=== PATIENT | female | born 1940 | race Caucasian/White ===

== ENCOUNTER 2022-01-12 07:03 | Day surgery (SDC) | payer MEDICARE, SELFPAY ==
[2022-01-12] MEDS: Tropicam./Phenyleph. (1/2.5%) 5 ML BTL OS ×3 (08:10→08:32)
[2022-01-12 08:26] VITALS: BP 153/103; PULSE 60; RESP 18; TEMP 36.4; O2SAT 98
[2022-01-12 08:33] VITALS: BP 186/85; PULSE 58; RESP 18; O2SAT 98
--- NOTE | 2022-01-12 08:36 | W.ANESPRE ---
General Info Date of Service Date Performed: 01/12/22 Height: 5 ft 1 in Weight: 107.9 kg Body Mass Index (BMI): 44.9 Surgical Procedure: Operation Date: 01/12/22 09:10 Proposed Procedure Side Surgeon p Cataract Extraction with IOL Implant Left William Mckenna MD Meds Allergies and Home Medications Allergies Allergy/AdvReac Type Severity Reaction Status Date / Time codeine Allergy Intermediate Psychosis Unverified 01/12/22 08:16 Home Medication Medication Instructions Recorded amiodarone 200 mg tablet 200 mg PO BID 01/07/22 apixaban 5 mg tablet 5 mg PO BID 01/07/22 clobetasol 0.05 % topical cream 1 applic TOPICAL DIRECTED 01/07/22 lovastatin 40 mg tablet 40 mg PO HS 01/07/22 metoprolol tartrate 50 mg tablet 50 mg PO TID 01/07/22 multivitamin 1 tab PO DAILY 01/07/22 albuterol sulfate 90 mcg/actuation 2 inh INHALATION DIRECTED 01/08/22 aerosol inhaler fluticasone 250 mcg-salmeterol 50 1 ea INHALATION BID 01/08/22 mcg/dose blistr powdr for inhalation (Advair Diskus) furosemide 20 mg tablet 20 mg PO BID 01/08/22 loratadine 10 mg tablet 10 mg PO DAILY 01/08/22 acetaminophen 650 mg tablet 650 mg PO Q6H PRN 01/12/22 Current Visit Medications: Current Medications Generic Name Dose Route Start Last Admin Trade Name Freq PRN Reason Stop Dose Admin Acetaminophen 1,000 mg 01/12/22 06:00 Acetaminophen 500 Mg Tab PO Q4H PRN PRN Miscellaneous Medication 0 ml 01/12/22 06:00 Prednisolone 1%, Moxifloxacin 0.5%, Nepafenac 0.1% 5ml Btl OS DIRECTED MITRA Miscellaneous Medication 0 ml 01/12/22 06:00 01/12/22 08:32 Tropicam./Phenyleph. 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 NSTEMI (non-ST elevated myocardial infarction) 08/2020 Osteoarthritis Pre-diabetes Tongue abnormality Surgical History Surgical History (Updated 01/12/22 @ 08:16 by Eliza Arias) H/O thumb surgery Hx of cardiac catheterization 09/08/20,09/12/20,11/01/20 Hx of tonsillectomy Hx of total knee replacement S/P WEST-BSO (total abdominal hysterectomy and bilateral salpingo-oophorectomy) S/P TAVR (transcatheter aortic valve replacement) Tobacco Smoking/Tobacco Use Status: Never Alcohol Alcohol Intake: current Alcohol intake frequency: a few times a month Alcohol type: wine Substance Use Substance use: Never Substance use type: does not use Vital Signs and Lab Results Vital Signs Most Recent Vital Signs in EMR: Most Recent Vital Signs Temp Pulse Resp BP Pulse Ox 36.4 C L 58 L 18 186/85 H 98 01/12/22 08:26 01/12/22 08:33 01/12/22 08:33 01/12/22 08:33 01/12/22 08:33 Lab Results Blood Type / Crossmatch: No Data to Display Complete Blood Count: No Data to Display Complete Metabolic Panel: No Data to Display Liver Function Panel: No Data to Display Coagulation Panel: No Data to Display Cardiac Panel: No Data to Display Arterial Blood Gas: No Data to Display Venous Blood Gas: No Data to Display Pancreas Panel: No Data to Display Thyroid Panel: No Data to Display Infectious Disease: No Data to Display Blood Cultures: No Data to Display Toxicology Panel: No Data to Display Imaging and Studies Imaging and Studies Study information below may be from another EMR and interpreted by another provider. Please see original notes in EMR for more complete details. Echocardiogram Summary: 03/17/21: [facility] [place], EF 71%, Prosthetic Valve, Mild perivalvular leak, Mild MR, PA systolic 32, Gradient acorss valve is 66 Peak/33 Mean. Anesthesia Assessment and Plan Anesthesia History Personal History: No History of Anesthesia Complications Family History: No Family History of Anesthesia Complications Exercise Tolerance Exercise Tolerance: Metabolic Equivalents<4 Pertinent Negatives Pertinent Negatives: No Symptoms of GERD Cardiac & Pulmonary Exam Cardiac Exam: Normal S1/S2 Heart Sounds Pulmonary Exam: Clear Bilateral Breath Sounds Implantable Cardiac Device Does patient have a Pacemaker or an ICD?: No Airway Exam Known Difficult Airway: No Mallampati Class: 3 Mouth Opening: Normal (> 3cm) Thyromental Distance: Greater than 3 cm Neck Range of Motion: Full ROM Neck Circumference: Normal Teeth Condition: Normal Dentition ASA Classification ASA Score: ASA 3 Emergency Case?: No NPO Status NPO Status: NPO Clears >2 hours, Solids >8 hours Anesthesia Plan Resuscitation Status: Full Code Anesthesia Technique: MAC Anesthesia Airway Planned: Natural Airway Monitors Used: Standard Monitors
[2022-01-12 08:49] VITALS: BMI 44.9
[2022-01-12] MEDS: Tetracaine 0.5% 4 ML BTL OS (08:50)
[2022-01-12] MEDS: Lidocaine 2% Jelly 6 ML SYR (08:51)
[2022-01-12] MEDS: Povidone-Iodine Ophth 30 ML BTL (08:52)
[2022-01-12] MEDS: Balanced Salt Soln.-PLUS 500 ML BAG (08:57)
[2022-01-12] MEDS: Duovisc Viscoelastic System EACH 1 EACH (08:58)
[2022-01-12] MEDS: Trypan Blue 0.06% 0.5 ML SYR (09:02)
[2022-01-12 09:19] VITALS: BP 185/51; PULSE 52; RESP 16; TEMP 36.1; O2SAT 99
--- NOTE | 2022-01-12 09:20 | W.PM.DSUDISC ---
Discharge Plan Disposition Patient Disposition: HOME Condition: Good Discharge Details Attending Provider: William Mckenna Primary Care Provider: ALEXANDRO NOLAN Home Meds and New Rx's Prescriptions: No Action multivitamin Tablet 1 tab PO DAILY 0RF amiodarone 200 mg Tablet 200 mg PO BID 0RF lovastatin 40 mg Tablet 40 mg PO HS 0RF clobetasol 0.05 % Cream 1 applic TOPICAL DIRECTED 0RF metoprolol tartrate 50 mg Tablet 50 mg PO TID 0RF apixaban 5 mg Tablet 5 mg PO BID 0RF furosemide 20 mg Tablet 20 mg PO BID 0RF loratadine 10 mg Tablet 10 mg PO DAILY 0RF fluticasone propion-salmeterol [Advair Diskus] 250-50 mcg/dose Blister With Device 1 ea INHALATION BID 0RF albuterol sulfate 90 mcg/actuation Hfa Aerosol Inhaler 2 inh INHALATION DIRECTED 0RF acetaminophen 650 mg Tablet 650 mg PO Q6H PRN0RF Discharge Instructions Stand Alone Forms: Post-op Topical Cataract, Elsy Doe (DSU) Discharge Orders Discharge Orders: Discharge Order (Routine); Ordered 01/12/22 Ordered By: William Mckenna DS: Diagnosis Discharge Diagnosis (1) Cortical cataract of left eye: Status: Resolved (2) Nuclear sclerotic cataract of left eye: Status: Resolved (3) Posterior subcapsular age-related cataract of left eye: Status: Resolved
--- NOTE | 2022-01-12 09:23 | W.PM.OP ---
Date of service: 01/12/22 Time of Service: 09:23 Operative Note Operative Note DATE OF PROCEDURE: 01/12/22 PRE-OP DIAGNOSIS: Nuclear/cortical/posterior subcapsular cataract, left eye POST-OP DIAGNOSIS: same PROCEDURE: Cataract extraction using phacoemulsification with intraocular lens implant, left eye, using capsular staining with Vision Blue SURGEON: William Mckenna ANESTHESIA TYPE: Local By Surgeon and MAC Refer to Anesthesia Record COMPLICATIONS: None Patient was transported to: same day Patient's condition: stable Implants: Josias and Josias / [employer] Tecnis [id number] Indications: Progressive decreased vision due to cataract, left eye, with poor red reflex Procedure Description: CATARACT SURGERY OPERATIVE REPORT PREOPERATIVE DIAGNOSIS: 1. Nuclear/cortical/posterior subcapsular cataract, left eye 2. Poor red reflex secondary to #1 POSTOPERATIVE DIAGNOSIS: Same OPERATION: 1. Cataract extraction using phacoemulsification with posterior chamber intraocular lens implant, left eye. 2. Capsular staining with Vision Blue IOL: IOL Fuels Sales Representative/Model: Josias & Josias / PETROS Tecnis [id number] IOL Power: + 24.5 diopters IOL Serial Number: [id number] Optic Diameter: 6.0 mm Haptic/Overall Diameter: 13.0 mm PHACO INFO: Chet Centurion Vision System with OZil and Active Fluidics Cumulative Dispersed Energy (CDE): 13.88 seconds SURGEON: William Mckenna MD, BABATUNDE ANESTHESIA: Monitored A [facility] (MAC), with local sub-tenon's anesthetic infiltration COMPLICATIONS: None SPECIMENS: None INDICATIONS FOR PROCEDURE: The patient is an 81-year-old lady with history of diminished visual acuity in her left eye who was noted to have a significant nuclear/cortical/posterior subcapsular cataract with poor visual acuity. The option of cataract surgery was offered to the patient and she felt she was symptomatic enough that she wished to proceed. PROCEDURE: The correct surgical eye was identified and marked as the left eye and the pupil was dilated in the preoperative area using mydriatics and cycloplegics. The dilated pupil size was 6.0 mm. She elected to proceed without oral sedation. The patient was brought to the operating room where cardiopulmonary monitoring was instituted and surgical time-out was performed, confirming the correct operative eye and IOL power. Topical anesthesia was administered and ophthalmic povidone-iodine 5% was instilled into the conjunctival fornices. Lidocaine gel was applied to the cornea and the manan-ocular area was prepped with Betadine 10% solution and draped in the usual sterile fashion for intraocular surgery, including an aperture drape. A Tegaderm transparent film dressing was cut in half and used to cover the lashes and lid margins. Care was taken to sequester the lashes and lid margins under the Tegaderm dressing. A lid speculum was placed between the lids of the operative eye and the Chet LuxOR Revalia operating microscope was maneuvered into position. Lewis scissors were then used to make a conjunctival buttonhole approximately 6mm posterior to the limbus in the inferonasal quadrant. Blunt dissection was carried out to expose bare sclera, and a blunt-tipped sub-tenon?s anesthesia cannula was introduced and passed posteriorly along the globe where non-preserved plain lidocaine was injected into posterior sub-Tenon?s space. A sideport knife was used to make a paracentesis port superiorly/superiortemporally. Intraocular phenylephrine/lidocaine was injected int the anterior chamber.. Air was then injected into the anterior chamber, followed by Vision Blue, which was painted over the anterior capsule and then irrigated out using BSS. The anterior chamber was filled with viscoelastic. A 2.4mm keratome knife was used to create a half-thickness groove at the limbus and then to construct a three-plane near-clear corneal tunnel extending 2.0mm into clear cornea at the 3:00 position. A flap was raised on the anterior capsule and capsulorhexis forceps were used to complete a continuous curvilinear capsulorhexis of 5.0 mm. Balanced salt solution was then used to perform cortical cleaving hydrodissection and nuclear hydrodelineation until the lens could be freely rotated within the capsular bag. The lens nucleus was then disassembled and removed within the capsular bag and iris plane using phacoemulsification. Residual cortical material was removed using the 45-degree angled silicone I/A tip with 0.3mm port. The posterior capsule was carefully polished to remove as much residual lens epithelial cells as safely possible. The capsular bag was then inflated and the anterior chamber deepened with viscoelastic. The lens implant described above was inserted into the capsular bag using the PETROS Red Devil Injector. A Kuglen hook was used to dial the IOL into position. Residual viscoelastic was then removed first from posterior to the IOL, then from the anterior chamber using the I/A handpiece. The lens implant was noted to center nicely within the capsular bag. The incisions were stromally hydrated, and the anterior chamber was reformed using BSS. Then 0.5cc of moxifloxacin 1.0mg/ml were injected into the capsular bag and anterior chamber. The incisions were checked with a Weck spear and found to be secure. Several drops of ophthalmic povidone-iodine 5% were then applied to the eye followed by two drops of Imprimis combination prednisolone/moxifloxacin/nepafenac solution. The drapes were removed and a clear plastic protective eye shield was placed over the eye. The patient was then returned to Same Day Surgery in stable condition.
--- NOTE | 2022-01-12 09:49 | W.ANESPOSTOP ---
Postoperative Evaluation Date, Time and Location Date Performed: 01/12/22 Time Performed: 09:49 Patient Location: Day Surgery Unit Vital Signs Most Recent Imported Vital Signs: Most Recent Vital Signs Temp Pulse Resp BP Pulse Ox 36.1 C L 52 L 16 185/51 H 99 01/12/22 09:19 01/12/22 09:19 01/12/22 09:19 01/12/22 09:19 01/12/22 09:19 Pain Score Most Recent Pain Score: Most Recent Pain Score Pain Level 0 01/12/22 09:19 Assessment Mental Status: Awake (Alert & Oriented to Patient Baseline) Airway and Respiratory Function: Patent airway with normal (patient baseline) respiratory exam Cardiovascular Function: Hemodynamically Stable Hydration Status: Adequately Hydrated Nausea & Vomiting: No Nausea or Vomiting Pain: Pt. Denies Any Pain Peripheral Nerve Block: Patient did not receive a nerve block
== END 2022-01-12 09:44 | disposition home or self-care (01) ==
PROVIDERS: PCP Optometrist; Visit Provider Ophthalmology
PROC: (CPT 66984; principal; 2022-01-12 09:00)
DX: H25.042 Posterior subcapsular polar age-related cataract, left eye (principal); I35.0 Nonrheumatic aortic (valve) stenosis; J44.9 Chronic obstructive pulmonary disease, unspecified; R73.03 Prediabetes; I10 Essential (primary) hypertension
CPT/HCPCS: 66984; V2632

== ENCOUNTER 2022-01-26 11:47 | Day surgery (SDC) | payer MEDICARE, OTHER, SELFPAY ==
--- NOTE | 2022-01-08 12:19 | PDOC.ANES ---
Date of service: 01/08/22 Time of Service: 12:20 Anesthesia Note Report Anesthesia Note: Maye is scheduled for a cataract removal in the next few weeks, but given her pmhx she is likely not a candidate for receiving sedation. On conversing with our preop RN she expressed concern about this. I called Maye at home and we discussed the procedure and anesthesia's role during the procedure. We went over the flow, positioning, and what to expect with her upcoming procedure. All of her questions where answered and she seems to be much more comfortable about her procedure. .
--- NOTE | 2022-01-26 10:36 | HPE_ITS ---
Assessment and Plan Assessment and plan (1) Posterior subcapsular age-related cataract, right eye: Status: Acute Assessment and plan: Assessment: Visually significant cataract of the right eye. Plan: Cataract extraction with lens implantation of the right eye (2) Cortical cataract of right eye: Status: Acute Assessment and plan: Assessment: Visually significant cataract of the right eye. Plan: Cataract extraction with lens implantation of the right eye (3) Nuclear sclerotic cataract of right eye: Status: Acute Assessment and plan: Assessment: Visually significant cataract of the right eye. Plan: Cataract extraction with lens implantation of the right eye History of Present Illness History of Present Illness Chief Complaint: Progressive decreased vision, right eye Narrative: The patient is an 80-year-old lady with history of progressive decreased vision in both eyes secondary to the development of bilateral nuclear/cortical/posterior subcapsular cataract. She has already undergone cataract surgery in her left eye on 01/12/2022 and is doing well postoperatively. She now presents for cataract surgery in her right eye. 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 NSTEMI (non-ST elevated myocardial infarction) 08/2020 Osteoarthritis Pre-diabetes Tongue abnormality Surgical History H/O thumb surgery Hx of cardiac catheterization 09/08/20,09/12/20,11/01/20 Hx of tonsillectomy Hx of total knee replacement S/P WEST-BSO (total abdominal hysterectomy and bilateral salpingo-oophorectomy) S/P TAVR (transcatheter aortic valve replacement) Social History Smoking/Tobacco Use Status: Never Smoking risk assessment performed?: Yes Alcohol Intake: current Alcohol Intake frequency: a few times a month Alcohol type: wine Drug use: Never Substance use type: does not use Do you feel safe at home: Yes Do you feel safe in your relationship?: Yes Additional Social history: unable to assess privately Meds Allergies and Home Medications Allergies Allergy/AdvReac Type Severity Reaction Status Date / Time codeine Allergy Intermediate Psychosis Verified 01/26/22 12:26 Home Medications Medication Instructions Recorded Confirmed Type amiodarone 200 mg tablet 200 mg PO BID 01/07/22 01/26/22 History apixaban 5 mg tablet 5 mg PO BID 01/07/22 01/26/22 History lovastatin 40 mg tablet 40 mg PO HS 01/07/22 01/26/22 History metoprolol tartrate 50 mg tablet 50 mg PO TID 01/07/22 01/26/22 History multivitamin 1 tab PO DAILY 01/07/22 01/26/22 History albuterol sulfate 90 mcg/actuation 2 inh INHALATION DIRECTED 01/08/22 01/26/22 History aerosol inhaler fluticasone 250 mcg-salmeterol 50 1 ea INHALATION BID 01/08/22 01/26/22 History mcg/dose blistr powdr for inhalation (Advair Diskus) furosemide 20 mg tablet 20 mg PO BID 01/08/22 01/26/22 History loratadine 10 mg tablet 10 mg PO DAILY 01/08/22 01/26/22 History acetaminophen 650 mg tablet 650 mg PO Q6H PRN 01/12/22 01/26/22 History Exam Eyes Other: Uncorrected visual acuity measures 20/100 right eye, 20/25 left eye. Intraocular pressure is 16 in each eye. Extraocular motility is normal. Slit- lamp examination reveals a severe cortical cataract with a mild nuclear and posterior subcapsular cataract in the right eye. The left eye shows a well- positioned PCIOL with clear posterior capsule. Funduscopic examination reveals disc cupping of 0.3 OU with normal vessels, macula, peripheral retina and vitreous. There are extra macular drusen temporal to the macula and nasal to the optic nerve. Resp Auscultation: clear to auscultation bilaterally Cardio Rate: regular rate Rhythm: regular rhythm
[2022-01-26 12:10] VITALS: BP 208/76; PULSE 61; RESP 20; TEMP 36.5; O2SAT 97
[2022-01-26] MEDS: Tropicam./Phenyleph. (1/2.5%) 5 ML BTL OD ×3 (12:34→12:47)
--- NOTE | 2022-01-26 12:49 | W.ANESPRE ---
General Info Date of Service Date Performed: 01/26/22 Height: 5 ft 1 in Weight: 107.6 kg Body Mass Index (BMI): 44.8 Surgical Procedure: Operation Date: 01/26/22 13:40 Proposed Procedure Side Surgeon p Cataract Extraction with IOL Implant Right William Mckenna MD Meds Allergies and Home Medications Allergies Allergy/AdvReac Type Severity Reaction Status Date / Time codeine Allergy Intermediate Psychosis Verified 01/26/22 12:26 Home Medication Medication Instructions Recorded amiodarone 200 mg tablet 200 mg PO BID 01/07/22 apixaban 5 mg tablet 5 mg PO BID 01/07/22 lovastatin 40 mg tablet 40 mg PO HS 01/07/22 metoprolol tartrate 50 mg tablet 50 mg PO TID 01/07/22 multivitamin 1 tab PO DAILY 01/07/22 albuterol sulfate 90 mcg/actuation 2 inh INHALATION DIRECTED 01/08/22 aerosol inhaler fluticasone 250 mcg-salmeterol 50 1 ea INHALATION BID 01/08/22 mcg/dose blistr powdr for inhalation (Advair Diskus) furosemide 20 mg tablet 20 mg PO BID 01/08/22 loratadine 10 mg tablet 10 mg PO DAILY 01/08/22 acetaminophen 650 mg tablet 650 mg PO Q6H PRN 01/12/22 Current Visit Medications: Current Medications Generic Name Dose Route Start Last Admin Trade Name Freq PRN Reason Stop Dose Admin Acetaminophen 1,000 mg 01/26/22 06:00 Acetaminophen 500 Mg Tab PO Q4H PRN PRN Miscellaneous Medication 0 ml 01/26/22 06:00 Prednisolone 1%, Moxifloxacin 0.5%, Nepafenac 0.1% 5ml Btl OD DIRECTED COUNTS INCLUDE 234 BEDS AT THE [facility] Miscellaneous Medication 0 ml 01/26/22 06:00 01/26/22 12:47 Tropicam./Phenyleph. (1/2.5%) 5 Ml Btl OD 1 drp DIRECTED MITRA Administration Tetracaine HCl 0 ml 01/26/22 06:00 Tetracaine 0.5% 4 Ml Btl OD DIRECTED COUNTS INCLUDE 234 BEDS AT THE [facility] PFSH Active Problems Active Problems: Problem Status Onset Code Posterior subcapsular age-related cataract, right eye H25.041 Cortical cataract of right eye H26.9 Nuclear sclerotic cataract of right eye H25.11 Cortical cataract of left eye H26.9 Nuclear sclerotic cataract of left eye H25.12 Posterior subcapsular age-related cataract of left eye H25.042 Medical History Medical History Ybnrt-3-kqzslvqzesi deficiency carrier Aortic stenosis Asthma COPD (chronic obstructive pulmonary disease) DJD (degenerative joint disease) Eczema HLD (hyperlipidemia) HTN (hypertension) 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 Anestheisa made aware Surgical History Surgical History H/O thumb surgery Hx of cardiac catheterization 09/08/20,09/12/20,11/01/20 Hx of tonsillectomy Hx of total knee replacement S/P WEST-BSO (total abdominal hysterectomy and bilateral salpingo-oophorectomy) S/P TAVR (transcatheter aortic valve replacement) Tobacco Smoking/Tobacco Use Status: Never Alcohol Alcohol Intake: current Alcohol intake frequency: a few times a month Alcohol type: wine Substance Use Substance use: Never Substance use type: does not use Vital Signs and Lab Results Vital Signs Most Recent Vital Signs in EMR: Most Recent Vital Signs Temp Pulse Resp BP Pulse Ox 36.5 C 61 20 208/76 H 97 01/26/22 12:10 01/26/22 12:10 01/26/22 12:10 01/26/22 12:10 01/26/22 12:10 Lab Results Blood Type / Crossmatch: No Data to Display Complete Blood Count: No Data to Display Complete Metabolic Panel: No Data to Display Liver Function Panel: No Data to Display Coagulation Panel: No Data to Display Cardiac Panel: No Data to Display Arterial Blood Gas: No Data to Display Venous Blood Gas: No Data to Display Pancreas Panel: No Data to Display Thyroid Panel: No Data to Display Infectious Disease: No Data to Display Blood Cultures: No Data to Display Toxicology Panel: No Data to Display Imaging and Studies Imaging and Studies Study information below may be from another EMR and interpreted by another provider. Please see original notes in EMR for more complete details. Echocardiogram Summary: 03/17/21: [facility], EF 71%, Prosthetic Valve, Mild perivalvular leak, Mild MR, PA systolic 32, Gradient acorss valve is 66 Peak/33 Mean. Anesthesia Assessment and Plan Anesthesia History Personal History: No History of Anesthesia Complications Family History: No Family History of Anesthesia Complications Exercise Tolerance Exercise Tolerance: Metabolic Equivalents<4 Pertinent Negatives Pertinent Negatives: No Symptoms of GERD, No Major Cardiovascular Symptoms or Complaints and No Major Pulmonary Symptoms or Complaints Cardiac & Pulmonary Exam Cardiac Exam: Normal S1/S2 Heart Sounds Pulmonary Exam: Clear Bilateral Breath Sounds Implantable Cardiac Device Does patient have a Pacemaker or an ICD?: No Airway Exam Known Difficult Airway: No Mallampati Class: 3 Mouth Opening: Normal (> 3cm) Thyromental Distance: Greater than 3 cm Neck Range of Motion: Full ROM Neck Circumference: Normal Teeth Condition: Normal Dentition ASA Classification ASA Score: ASA 3 Emergency Case?: No NPO Status NPO Status: NPO Clears >2 hours, Solids >8 hours Anesthesia Plan Resuscitation Status: Full Code Anesthesia Technique: MAC Anesthesia Airway Planned: Natural Airway Monitors Used: Standard Monitors
[2022-01-26] MEDS: Lidocaine 2% Jelly 6 ML SYR (13:04)
[2022-01-26] MEDS: Tetracaine 0.5% 4 ML BTL OD (13:04)
[2022-01-26] MEDS: Balanced Salt Soln.-PLUS 500 ML BAG (13:14)
[2022-01-26] MEDS: Duovisc Viscoelastic System EACH 1 EACH (13:15)
[2022-01-26] MEDS: Trypan Blue 0.06% 0.5 ML SYR (13:17)
[2022-01-26] MEDS: Povidone-Iodine Ophth 30 ML BTL (13:17)
[2022-01-26 13:36] VITALS: BP 177/53; PULSE 59; RESP 16; TEMP 36.2; O2SAT 97
--- NOTE | 2022-01-26 13:39 | W.PM.DSUDISC ---
Discharge Plan Disposition Patient Disposition: HOME Condition: Good Discharge Details Attending Provider: William Mckenna Primary Care Provider: Kae Blunt Home Meds and New Rx's Prescriptions: No Action multivitamin Tablet 1 tab PO DAILY 0RF amiodarone 200 mg Tablet 200 mg PO BID 0RF lovastatin 40 mg Tablet 40 mg PO HS 0RF metoprolol tartrate 50 mg Tablet 50 mg PO TID 0RF apixaban 5 mg Tablet 5 mg PO BID 0RF furosemide 20 mg Tablet 20 mg PO BID 0RF loratadine 10 mg Tablet 10 mg PO DAILY 0RF fluticasone propion-salmeterol [Advair Diskus] 250-50 mcg/dose Blister With Device 1 ea INHALATION BID 0RF albuterol sulfate 90 mcg/actuation Hfa Aerosol Inhaler 2 inh INHALATION DIRECTED 0RF acetaminophen 650 mg Tablet 650 mg PO Q6H PRN0RF Discharge Instructions Stand Alone Forms: Post-op Block Cataract, Post-op Topical Cataract, Elsy Gandonte (DSU) Discharge Orders Discharge Orders: Discharge Order (Routine); Ordered 01/26/22 Ordered By: William Mckenna DS: Diagnosis Discharge Diagnosis (1) Posterior subcapsular age-related cataract, right eye: Status: Resolved (2) Cortical cataract of right eye: Status: Resolved (3) Nuclear sclerotic cataract of right eye: Status: Resolved
--- NOTE | 2022-01-26 13:43 | W.PM.OP ---
Date of service: 01/26/22 Time of Service: 13:44 Operative Note Operative Note DATE OF PROCEDURE: 01/26/22 PRE-OP DIAGNOSIS: Nuclear/cortical/posterior subcapsular cataract, right eye Poor red reflex, right eye secondary to cataract POST-OP DIAGNOSIS: same PROCEDURE: Cataract extraction using phacoemulsification with intraocular lens implant, left eye, using capsular staining with Vision Blue SURGEON: William Mckenna ANESTHESIA TYPE: Local By Surgeon and MAC Refer to Anesthesia Record COMPLICATIONS: None Patient was transported to: same day Patient's condition: stable Implants: Jos[employer] / [employer] Tecnis [id number] Indications: Progressive decreased vision due to cataract, left eye, with poor red reflex Procedure Description: CATARACT SURGERY OPERATIVE REPORT PREOPERATIVE DIAGNOSIS: 1. Nuclear/cortical/posterior subcapsular cataract, right eye 2. Poor red reflex secondary to #1 POSTOPERATIVE DIAGNOSIS: Same OPERATION: 1. Cataract extraction using phacoemulsification with posterior chamber intraocular lens implant, left eye. 2. Capsular staining with Vision Blue IOL: IOL Loan Interviewer/Model: [employer] Josias / PETROS Tecnis [id number] IOL Power: + 24.5 diopters IOL Serial Number: [id number] Optic Diameter: 6.0 mm Haptic/Overall Diameter: 13.0 mm PHACO INFO: [employer] Vision System with OZil and Active [employer]uidics Cumulative Dispersed Energy (CDE): 8.56 seconds SURGEON: William Mckenna MD, BABATUNDE ANESTHESIA: Monitored A [facility] (MAC), with local sub-tenon's anesthetic infiltration COMPLICATIONS: None SPECIMENS: None INDICATIONS FOR PROCEDURE: The patient is an 81-year-old lady with history of diminished visual acuity in both eyes secondary to the development of bilateral nuclear/cortical/posterior subcapsular cataract. She has already undergone cataract surgery in the left eye and is doing well postoperatively. She now presents for cataract surgery in the right eye. PROCEDURE: The correct surgical eye was identified and marked as the left eye and the pupil was dilated in the preoperative area using mydriatics and cycloplegics. The dilated pupil size was six-point mm. She elected to proceed without oral sedation. The patient was brought to the operating room where cardiopulmonary monitoring was instituted and surgical time-out was performed, confirming the correct operative eye and IOL power. Topical anesthesia was administered and ophthalmic povidone-iodine 5% was instilled into the conjunctival fornices. Lidocaine gel was applied to the cornea and the manan-ocular area was prepped with Betadine 10% solution and draped in the usual sterile fashion for intraocular surgery, including an aperture drape. A Tegaderm transparent film dressing was cut in half and used to cover the lashes and lid margins. Care was taken to sequester the lashes and lid margins under the Tegaderm dressing. A lid speculum was placed between the lids of the operative eye and the Chet [employer] Rev[employer] operating microscope was maneuvered into position. Lewis scissors were then used to make a conjunctival buttonhole approximately 6mm posterior to the limbus in the inferonasal quadrant. Blunt dissection was carried out to expose bare sclera, and a blunt-tipped sub-tenon?s anesthesia cannula was introduced and passed posteriorly along the globe where non-preserved plain lidocaine was injected into posterior sub-Tenon?s space. A sideport knife was used to make a paracentesis port superiorly/superiortemporally. Intraocular phenylephrine/lidocaine was injected int the anterior chamber.. Air was then injected into the anterior chamber, followed by Vision Blue, which was painted over the anterior capsule and then irrigated out using BSS. The anterior chamber was filled with viscoelastic. A 2.4mm keratome knife was used to create a half-thickness groove at the limbus and then to construct a three-plane near-clear corneal tunnel extending 2.0mm into clear cornea at the 3:00 position. A flap was raised on the anterior capsule and capsulorhexis forceps were used to complete a continuous curvilinear capsulorhexis of 4.8 mm. Balanced salt solution was then used to perform cortical cleaving hydrodissection and nuclear hydrodelineation until the lens could be freely rotated within the capsular bag. The lens nucleus was then disassembled and removed within the capsular bag and iris plane using phacoemulsification. Residual cortical material was removed using the 45-degree angled silicone I/A tip with 0.3mm port. The posterior capsule was carefully polished to remove as much residual lens epithelial cells as safely possible. The capsular bag was then inflated and the anterior chamber deepened with viscoelastic. The lens implant described above was inserted into the capsular bag using the PETROS [place] Injector. A Kuglen hook was used to dial the IOL into position. Residual viscoelastic was then removed first from posterior to the IOL, then from the anterior chamber using the I/A handpiece. The lens implant was noted to center nicely within the capsular bag. The incisions were stromally hydrated, and the anterior chamber was reformed using BSS. Then 0.5cc of moxifloxacin 1.0mg/ml were injected into the capsular bag and anterior chamber. The incisions were checked with a Weck spear and found to be secure. Several drops of ophthalmic povidone-iodine 5% were then applied to the eye followed by two drops of Imprimis combination prednisolone/moxifloxacin/nepafenac solution. The drapes were removed and a clear plastic protective eye shield was placed over the eye. The patient was then returned to Same Day Surgery in stable condition.
[2022-01-26 13:48] VITALS: BMI 44.8
--- NOTE | 2022-01-26 13:53 | W.ANESPOSTOP ---
Postoperative Evaluation Date, Time and Location Date Performed: 01/26/22 Time Performed: 13:53 Patient Location: Day Surgery Unit Vital Signs Most Recent Imported Vital Signs: Most Recent Vital Signs Temp Pulse Resp BP Pulse Ox 36.2 C L 59 L 16 177/53 H 97 01/26/22 13:36 01/26/22 13:36 01/26/22 13:36 01/26/22 13:36 01/26/22 13:36 Pain Score Most Recent Pain Score: Most Recent Pain Score Pain Level 0 01/26/22 13:36 Assessment Mental Status: Awake (Alert & Oriented to Patient Baseline) Airway and Respiratory Function: Patent airway with normal (patient baseline) respiratory exam Cardiovascular Function: Hemodynamically Stable Hydration Status: Adequately Hydrated Nausea & Vomiting: No Nausea or Vomiting Pain: Pt. Denies Any Pain Peripheral Nerve Block: Patient did not receive a nerve block
== END 2022-01-26 14:01 | disposition home or self-care (01) ==
PROVIDERS: PCP Legal Medicine; Visit Provider Ophthalmology
PROC: (CPT 66984; principal; 2022-01-26 13:30)
DX: H25.041 Posterior subcapsular polar age-related cataract, right eye (principal); J44.9 Chronic obstructive pulmonary disease, unspecified; I10 Essential (primary) hypertension
CPT/HCPCS: 66984; V2632

== ENCOUNTER 2024-02-15 22:41 | Outpatient (REF) | payer MEDICARE, SELFPAY ==
[2024-02-15 18:52] LABS: Abs Immature Grans 0.12 10^3/uL (0.0-0.06); Absolute Basophil Count 0.02 10^3/uL (0.0-0.2); Absolute Lymphocyte Count 0.93 10^3/uL (1.2-3.4); Absolute Monocyte Count 0.57 10^3/uL (0.1-0.8); Absolute Neutrophil Count 8.92 10^3/uL (1.2-6.7); Basophils % 0.2 %; HCT 34.3 % (36.0-46.0); HGB 10.9 g/dL (11.2-15.7); Immature Grans % 1.1 %; Lymphocytes % 8.8 %; MCH 32.2 pg (27.0-33.0); MCHC 31.8 % (32.0-36.0); MCV 101 fL (80-95); MPV 12.8 fL (8.0-11.0); Monocytes % 5.4 %; Neutrophils % 84.5 %; Platelet Count 327 10^3/uL (130-400); RBC 3.39 10^6/uL (3.93-5.22); RDW 15.4 % (11.7-14.6); RDW-SD 55.9 fL; WBC 10.56 10^3/uL (4.4-10.8)
[2024-02-15 18:55] LABS: Anion Gap 7.3 mmol/L (3-11); BUN 42 mg/dL (7-18); CO2 30.7 mmol/L (21.0-32.0); CREATININE 1.7 mg/dL (0.55-1.02); Calcium 9.4 mg/dL (8.5-10.1); Chloride 103 mmol/L (98-107); Estimated GFR 29.57 (mL/min/1.73m2); Glucose 214 mg/dL (74-106); Magnesium 2.3 mg/dL (1.8-2.4); Sodium 141 mmol/L (136-145)
== END 2024-02-15 22:42 | disposition home or self-care (01) ==
LOC: LBN 22:41
PROVIDERS: PCP Legal Medicine; Visit Provider Family Medicine
DX: J44.9 Chronic obstructive pulmonary disease, unspecified (principal)
CPT/HCPCS: 80048; 83735; 85025